=== PATIENT | male | born 1970 | race Caucasian/White ===

== ENCOUNTER 2025-08-03 09:44 | Emergency (ER) | payer OTHER ==
[~2025-08-03] VITALS: Ht 180.3 cm; Wt 84.4 kg
[2025-08-03] MEDS ORDERED: AMLO5 PO (13:44)
[2025-08-03] MEDS ORDERED: Percocet 5-3251 EACH PO (13:44)
[2025-08-03] MEDS ORDERED: AMOCLA875 PO (13:44)
[2025-08-03] MEDS ORDERED: IBUP800 PO (13:44)
[2025-08-03] MEDS ORDERED: NS 1,000 ML IV SCH (13:45)
[2025-08-03] MEDS ORDERED: Ketorolac Tromethamine 15mg Vial IV ONE (13:45)
[2025-08-03] MEDS ORDERED: Ampicillin Sod/Sulbactam Sod 3 GM in NS 100 ML IV ONE (13:45)
== END 2025-08-03 15:18 | disposition home or self-care (01) ==
LOC: ER 09:44
DX: S62.631B Displaced fracture of distal phalanx of left index finger, initial encounter for open fracture (principal); S61.213A Laceration without foreign body of left middle finger without damage to nail, initial encounter; S61.215A Laceration without foreign body of left ring finger without damage to nail, initial encounter; W29.3XXA Contact with powered garden and outdoor hand tools and machinery, initial encounter
CPT/HCPCS: 12002; 73130; 90471; 90715; 96365-59; 96375-59; 99282-25; J0295; J1885; J7030